=== PATIENT | male | born 1970 | race Caucasian/White ===

== ENCOUNTER 2017-08-24 12:33 | Inpatient (IN) | payer MEDICAID, OTHER ==
[~2017-08-24] VITALS: Ht 170.2 cm; Wt 89.8 kg
[2017-08-24 12:53] LABS: GLUCOSE,POINT OF CARE 154 MG/DL (70-110)
[2017-08-24 14:45] LABS: BASOPHILS % (AUTO) 0.5 % (0.0-2.0); EOSINOPHILS % (AUTO) 0 % (1.0-6.0); HEMATOCRIT 44.9 % (41-53); HEMOGLOBIN 15.6 g/dL (13.5-17.5); LYMPHOCYTES % (AUTO) 6.4 % (22.0-44.0); MEAN CORPUSCULAR HGB CONC 34.7 G/dL (31.0-37.0); MEAN CORPUSCULAR VOLUME 87 fL (80-100); MONOCYTES # (AUTO) 1.1 K/uL (0.1-1.0); MONOCYTES % (AUTO) 6.8 % (2.0-9.0); NEUTROPHILS # (AUTO) 14.1 K/uL (1.8-7.7); NEUTROPHILS % (AUTO) 86.3 % (40.0-70.0); PLATELET COUNT (AUTO) 227 K/uL (150-450); RED BLOOD CELL COUNT(AUTO) 5.19 MIL/uL (4.50-5.90); RED CELL DISTRIBUTION WIDTH 13.4 % (11.5-14.5)
[2017-08-24 14:51] LABS: AMPHET/METH SCREEN,URINE NEGATIVE (NEGATIVE); BARBITURATE SCREEN, URINE NEGATIVE (NEGATIVE); BENZODIAZEPINES SCREEN,URINE POSITIVE (NEGATIVE); CANNABINOID SCREEN,URINE NEGATIVE (NEGATIVE); COCAINE SCREEN,URINE NEGATIVE (NEGATIVE); METHADONE SCREEN, URINE NEGATIVE (NEGATIVE); OPIATE SCREEN,URINE NEGATIVE (NEGATIVE)
[2017-08-24 15:04] LABS: PHENCYCLIDINE SCREEN,URINE NEGATIVE (NEGATIVE)
[2017-08-24 15:06] LABS: ANION GAP 12 mmol/L (8-16); CALCIUM, TOTAL 9.1 mg/dL (8.8-10.5); CARBON DIOXIDE 23 mmol/L (22-29); CHLORIDE 102 mmol/L (98-107); GLOMERULAR FILTR. RATE CALC > 60 mL/min (>60); GLUCOSE,RANDOM 84 mg/dL (70-110); POTASSIUM 3.7 mmol/L (3.5-5.1); SODIUM SERUM 137 mmol/L (136-145); UREA NITROGEN, BLOOD 13 mg/dL (7-18)
[2017-08-24 15:13] LABS: ALANINE AMINOTRANSFERASE 26 U/L (12-78); ALBUMIN 4.2 g/dL (3.4-5.0); ALKALINE PHOSPHATASE 98 U/L (46-116); ASPARTATE AMINOTRANSFERASE 31 U/L (15-37); BILIRUBIN,TOTAL 1.1 mg/dL (0.1-1.0)
[2017-08-24 15:19] LABS: ACETAMINOPHEN < 2 mcg/mL (10-30); SALICYLATE 0.3 mg/dL (2.8-20.0)
[2017-08-24 18:06] VITALS: BP 116/85
[2017-08-24] MEDS ORDERED: PNEUMOCOCCAL VACCINE POLYVALENT 0.5 ML VIAL [PPSV23] IM ONE (18:30)
[2017-08-24] MEDS ORDERED: DiphenhydrAMINE HCL 50 MG/ML VIAL ONE (19:25)
[2017-08-24] MEDS ORDERED: DiphenhydrAMINE HCL 50 MG/ML VIAL IM ONE (19:30)
[2017-08-25 08:28] VITALS: BP 125/73
[2017-08-25 09:17] LABS: CHOL/HDL RATIO 2.4 (4.2-7.3)
[2017-08-25] MEDS ORDERED: MAGNESIUM HYDROXIDE SUSPENSION 30 ML UDCUP PO PRN (10:15)
[2017-08-25] MEDS ORDERED: PETROLATUM,WHITE 71 GM JELLY TP PRN (10:15)
[2017-08-25] MEDS ORDERED: ONDANSETRON HCL 4 MG TABLET PO PRN (10:15)
[2017-08-25] MEDS ORDERED: CloNIDine HCL 0.1 MG TABLET PO PRN (10:15)
[2017-08-25] MEDS ORDERED: LOPERAMIDE HCL 2 MG CAPSULE PO PRN (10:15)
[2017-08-25] MEDS ORDERED: MAG HYDROX/AL HYDROX/SIMETH ES 30 ML SUSPENSION UDCUP PO PRN (10:15)
[2017-08-25] MEDS ORDERED: IBUPROFEN 600 MG TABLET PO PRN (10:15)
[2017-08-25] MEDS ORDERED: BENZOCAINE/MENTHOL LOZENGE MM PRN (10:15)
[2017-08-25] MEDS ORDERED: ACETAMINOPHEN 325 MG TABLET PO PRN (10:15)
[2017-08-25] MEDS ORDERED: BACITRACIN 28.4 GM OINTMENT TP PRN (10:15)
[2017-08-25] MEDS ORDERED: ALBUTEROL SULFATE HFA 90 MCG/PUFF 8 GM INHALER IH PRN (10:15)
[2017-08-25 16:09] VITALS: BP 131/74
[2017-08-25] MEDS: HALOPERIDOL 5 MG TABLET PO PRN (17:33)
[2017-08-25] MEDS ORDERED: DiphenhydrAMINE HCL 50 MG/ML VIAL IM ONE (19:00)
[2017-08-25 19:52] VITALS: BP 129/89
[2017-08-25] MEDS: ZOLPIDEM TARTRATE 10 MG TABLET PO PRN (20:37)
[2017-08-26 05:58] VITALS: BP 122/78
[2017-08-26 08:11] VITALS: BP 120/70
[2017-08-26 08:14] LABS: BASOPHILS % (AUTO) 0.4 % (0.0-2.0); EOSINOPHILS % (AUTO) 0.8 % (1.0-6.0); HEMOGLOBIN 15.1 g/dL (13.5-17.5); LYMPHOCYTES # (AUTO) 1.4 K/uL (1.0-4.8); LYMPHOCYTES % (AUTO) 21.8 % (22.0-44.0); MEAN CORPUSCULAR HGB CONC 34.3 G/dL (31.0-37.0); MEAN CORPUSCULAR VOLUME 87 fL (80-100); MONOCYTES # (AUTO) 0.6 K/uL (0.1-1.0); NEUTROPHILS # (AUTO) 4.4 K/uL (1.8-7.7); PLATELET COUNT (AUTO) 207 K/uL (150-450); RED BLOOD CELL COUNT(AUTO) 5.04 MIL/uL (4.50-5.90); RED CELL DISTRIBUTION WIDTH 13.5 % (11.5-14.5)
[2017-08-26 08:18] LABS: HEMOGLOBIN A1C 5.6 % (4.5-6.2)
[2017-08-26] MEDS: OLANZapine 10 MG RAPDIS TABLET PO SCH ×2 (08:21→16:36)
[2017-08-26] MEDS: DOCUSATE SODIUM 100 MG CAPSULE PO SCH (08:21)
[2017-08-26] MEDS: OMEPRAZOLE 20 MG CAPSULE PO SCH (08:21)
[2017-08-26 08:38] LABS: ALANINE AMINOTRANSFERASE 33 U/L (12-78); ALBUMIN 3.9 g/dL (3.4-5.0); ALKALINE PHOSPHATASE 84 U/L (46-116); ANION GAP 10 mmol/L (8-16); ASPARTATE AMINOTRANSFERASE 62 U/L (15-37); BILIRUBIN,TOTAL 1.2 mg/dL (0.1-1.0); CALCIUM, TOTAL 8.7 mg/dL (8.8-10.5); CARBON DIOXIDE 27 mmol/L (22-29); CHLORIDE 103 mmol/L (98-107); CREATININE 0.89 mg/dL (0.60-1.30); GLOMERULAR FILTR. RATE CALC > 60 mL/min (>60); GLUCOSE,RANDOM 113 mg/dL (70-110); POTASSIUM 3.3 mmol/L (3.5-5.1); SODIUM SERUM 140 mmol/L (136-145); THYROID STIMULATING HORMONE 2.51 uIU/mL (0.36-3.74); TOTAL PROTEIN, SERUM 7.7 g/dL (6.4-8.2); UREA NITROGEN, BLOOD 14 mg/dL (7-18)
[2017-08-26] MEDS ORDERED: POTASSIUM CHLORIDE 20 MEQ ER TABLET PO ONE (09:00)
[2017-08-26 16:30] VITALS: BP 140/87
[2017-08-26] MEDS: HALOPERIDOL 5 MG TABLET PO PRN (16:36)
[2017-08-26] MEDS: ZOLPIDEM TARTRATE 10 MG TABLET PO PRN (21:03)
[2017-08-27] VITALS (8 sets, daily range): BP systolic 116–156; BP diastolic 66–112
[2017-08-27] MEDS: OMEPRAZOLE 20 MG CAPSULE PO SCH (08:09)
[2017-08-27] MEDS: DOCUSATE SODIUM 100 MG CAPSULE PO SCH (08:09)
[2017-08-27] MEDS: OLANZapine 10 MG RAPDIS TABLET PO SCH ×2 (08:09→16:43)
[2017-08-27] MEDS ORDERED: DiphenhydrAMINE HCL 50 MG/ML VIAL IM ONE (12:00)
[2017-08-27] MEDS: BENZTROPINE MESYLATE 1 MG TABLET PO SCH (16:42)
[2017-08-28 00:43] VITALS: BP 144/88
[2017-08-28] MEDS: ZOLPIDEM TARTRATE 10 MG TABLET PO PRN (00:56)
[2017-08-28] MEDS: HALOPERIDOL 5 MG TABLET PO PRN (00:56)
[2017-08-28 08:07] VITALS: BP 130/84
[2017-08-28] MEDS: OLANZapine 10 MG RAPDIS TABLET PO SCH ×2 (08:40→16:17)
[2017-08-28] MEDS: DOCUSATE SODIUM 100 MG CAPSULE PO SCH (08:40)
[2017-08-28] MEDS: BENZTROPINE MESYLATE 1 MG TABLET PO SCH ×2 (08:40→16:17)
[2017-08-28] MEDS: OMEPRAZOLE 20 MG CAPSULE PO SCH (08:40)
[2017-08-28 16:14] VITALS: BP 136/84
[2017-08-29 05:37] VITALS: BP 134/85
[2017-08-29 08:15] VITALS: BP 135/92
[2017-08-29] MEDS: BENZTROPINE MESYLATE 1 MG TABLET PO SCH ×2 (08:24→16:46)
[2017-08-29] MEDS: DOCUSATE SODIUM 100 MG CAPSULE PO SCH (08:24)
[2017-08-29] MEDS: OLANZapine 10 MG RAPDIS TABLET PO SCH ×2 (08:25→16:46)
[2017-08-29] MEDS: OMEPRAZOLE 20 MG CAPSULE PO SCH (08:25)
[2017-08-29] MEDS: ATENOLOL 25 MG TABLET PO SCH (08:25)
[2017-08-29 16:02] VITALS: BP 102/67
[2017-08-29] MEDS: DULoxetine HCL 30 MG CAPSULE PO SCH (16:46)
[2017-08-30 04:26] VITALS: BP 112/75
[2017-08-30 08:10] VITALS: BP 120/73
[2017-08-30] MEDS: OMEPRAZOLE 20 MG CAPSULE PO SCH (08:26)
[2017-08-30] MEDS: OLANZapine 10 MG RAPDIS TABLET PO SCH ×2 (08:26→16:23)
[2017-08-30] MEDS: DOCUSATE SODIUM 100 MG CAPSULE PO SCH (08:26)
[2017-08-30] MEDS: BENZTROPINE MESYLATE 1 MG TABLET PO SCH ×2 (08:26→16:23)
[2017-08-30] MEDS: DULoxetine HCL 30 MG CAPSULE PO SCH ×2 (08:26→16:23)
[2017-08-30] MEDS: ATENOLOL 25 MG TABLET PO SCH (08:26)
[2017-08-30 16:29] VITALS: BP 120/80
[2017-08-31 06:32] VITALS: BP 125/79
[2017-08-31] MEDS ORDERED: BENZ1TAB10 PO (06:47)
[2017-08-31] MEDS ORDERED: OLAN10TA22 PO (06:47)
[2017-08-31] MEDS ORDERED: DULO30CA2 PO (06:47)
[2017-08-31 08:05] VITALS: BP 137/77
[2017-08-31] MEDS: OMEPRAZOLE 20 MG CAPSULE PO SCH (08:10)
[2017-08-31] MEDS: ATENOLOL 25 MG TABLET PO SCH (08:10)
[2017-08-31] MEDS: DULoxetine HCL 30 MG CAPSULE PO SCH (08:10)
[2017-08-31] MEDS: BENZTROPINE MESYLATE 1 MG TABLET PO SCH (08:10)
[2017-08-31] MEDS: OLANZapine 10 MG RAPDIS TABLET PO SCH (08:14)
[2017-08-31] MEDS ORDERED: DSS100 PO (09:13)
[2017-08-31] MEDS: DOCUSATE SODIUM 100 MG CAPSULE PO SCH (09:15)
[2017-08-31] MEDS ORDERED: OMEP20 PO (09:16)
== END 2017-08-31 11:00 | disposition home or self-care (01) | DRG 750 ==
LOC: EMS 12:34 → B3A 15:46
PROVIDERS: ATTEND Psychiatry & Neurology Child & Adolescent Psychiatry
DX: F25.1 Schizoaffective disorder, depressive type (principal); R45.851 Suicidal ideations; Z59.0 Homelessness; D72.829 Elevated white blood cell count, unspecified; F41.9 Anxiety disorder, unspecified; G47.00 Insomnia, unspecified; M79.7 Fibromyalgia; R00.0 Tachycardia, unspecified; Z28.21 Immunization not carried out because of patient refusal; Z56.0 Unemployment, unspecified; Z88.8 Allergy status to other drugs, medicaments and biological substances
CPT/HCPCS: 82306; 82962; 83036; 84132; 84443; 99285; G0480; G0481; J1200; J3230

== ENCOUNTER 2017-08-27 16:32 | Emergency (ER) | payer MEDICAID, OTHER ==
[~2017-08-27] VITALS: Ht 177.8 cm; Wt 77.3 kg
[2017-08-27 19:22] LABS: BASOPHILS % (AUTO) 0.9 % (0.0-2.0); EOSINOPHILS % (AUTO) 0.1 % (1.0-6.0); HEMOGLOBIN 14.7 g/dL (13.5-17.5); LYMPHOCYTES # (AUTO) 1.1 K/uL (1.0-4.8); LYMPHOCYTES % (AUTO) 12.2 % (22.0-44.0); MEAN CORPUSCULAR HGB CONC 34.3 G/dL (31.0-37.0); MEAN CORPUSCULAR VOLUME 88 fL (80-100); MONOCYTES # (AUTO) 0.7 K/uL (0.1-1.0); NEUTROPHILS # (AUTO) 7.3 K/uL (1.8-7.7); NEUTROPHILS % (AUTO) 78.8 % (40.0-70.0); PLATELET COUNT (AUTO) 211 K/uL (150-450); RED BLOOD CELL COUNT(AUTO) 4.91 MIL/uL (4.50-5.90); RED CELL DISTRIBUTION WIDTH 13.5 % (11.5-14.5)
[2017-08-27 19:38] LABS: ANION GAP 10 mmol/L (8-16); CALCIUM, TOTAL 8.9 mg/dL (8.8-10.5); CARBON DIOXIDE 26 mmol/L (22-29); CHLORIDE 103 mmol/L (98-107); CREATININE 0.82 mg/dL (0.60-1.30); GLOMERULAR FILTR. RATE CALC > 60 mL/min (>60); GLUCOSE,RANDOM 118 mg/dL (70-110); POTASSIUM 3.7 mmol/L (3.5-5.1); SODIUM SERUM 139 mmol/L (136-145); UREA NITROGEN, BLOOD 11 mg/dL (7-18)
[2017-08-27 19:43] LABS: ALANINE AMINOTRANSFERASE 34 U/L (12-78); ALBUMIN 3.8 g/dL (3.4-5.0); ALKALINE PHOSPHATASE 84 U/L (46-116); ASPARTATE AMINOTRANSFERASE 54 U/L (15-37); TOTAL PROTEIN, SERUM 7.8 g/dL (6.4-8.2)
[2017-08-27 23:25] VITALS: BP 152/91
== END 2017-08-28 00:16 | disposition home or self-care (01) ==
LOC: EMS 16:33
DX: F20.2 Catatonic schizophrenia (principal); Z88.8 Allergy status to other drugs, medicaments and biological substances
CPT/HCPCS: 36415; 80053; 85025; 99284; G0480

== ENCOUNTER 2017-08-31 16:48 | Emergency (ER) | payer OTHER ==
[~2017-08-31] VITALS: Ht 170.2 cm; Wt 90.9 kg
[~2017-08-31 16:48] MED LIST: BENZ1TAB10 PO; DSS100 PO; DULO30CA2 PO; OLAN10TA22 PO; OMEP20 PO
[2017-08-31 16:59] VITALS: BP 130/80
== END 2017-08-31 18:52 | disposition home or self-care (01) ==
LOC: EMS 16:48
DX: F25.1 Schizoaffective disorder, depressive type (principal); Z59.0 Homelessness; Z88.8 Allergy status to other drugs, medicaments and biological substances; Z79.899 Other long term (current) drug therapy
CPT/HCPCS: 99284

== ENCOUNTER 2017-10-03 17:40 | Inpatient (IN) | payer MEDICAID, OTHER ==
[~2017-10-03] VITALS: Ht 170.2 cm; Wt 93.9 kg
[~2017-10-03 17:40] MED LIST changes: -BENZ1TAB10 PO
[2017-10-03] MEDS ORDERED: AMIT10TA6 PO (18:25)
[2017-10-03 18:49] LABS: BASOPHILS % (AUTO) 0.9 % (0.0-2.0); EOSINOPHILS % (AUTO) 0.1 % (1.0-6.0); HEMATOCRIT 42.5 % (41-53); HEMOGLOBIN 14.7 g/dL (13.5-17.5); LYMPHOCYTES # (AUTO) 1.4 K/uL (1.0-4.8); LYMPHOCYTES % (AUTO) 19.4 % (22.0-44.0); MEAN CORPUSCULAR HEMOGLOBIN 30.2 pg (26.0-34.0); MEAN CORPUSCULAR HGB CONC 34.5 G/dL (31.0-37.0); MEAN CORPUSCULAR VOLUME 88 fL (80-100); MONOCYTES # (AUTO) 0.7 K/uL (0.1-1.0); MONOCYTES % (AUTO) 9.2 % (2.0-9.0); NEUTROPHILS % (AUTO) 70.4 % (40.0-70.0); PLATELET COUNT (AUTO) 229 K/uL (150-450); RED BLOOD CELL COUNT(AUTO) 4.86 MIL/uL (4.50-5.90); RED CELL DISTRIBUTION WIDTH 13.9 % (11.5-14.5)
[2017-10-03 18:58] LABS: ANION GAP 7 mmol/L (8-16); CALCIUM, TOTAL 8.7 mg/dL (8.8-10.5); CARBON DIOXIDE 25 mmol/L (22-29); CHLORIDE 107 mmol/L (98-107); GLOMERULAR FILTR. RATE CALC > 60 mL/min (>60); GLUCOSE,RANDOM 102 mg/dL (70-110); POTASSIUM 3.8 mmol/L (3.5-5.1); SODIUM SERUM 139 mmol/L (136-145); UREA NITROGEN, BLOOD 15 mg/dL (7-18)
[2017-10-03 19:06] LABS: ALANINE AMINOTRANSFERASE 27 U/L (12-78); ALKALINE PHOSPHATASE 93 U/L (46-116); BILIRUBIN,TOTAL 0.7 mg/dL (0.1-1.0); TOTAL PROTEIN, SERUM 8.1 g/dL (6.4-8.2)
[2017-10-03 19:08] LABS: ACETAMINOPHEN < 2 mcg/mL (10-30)
[2017-10-03 20:08] LABS: ASPARTATE AMINOTRANSFERASE 23 U/L (15-37); SALICYLATE 0.4 mg/dL (2.8-20.0)
[2017-10-04 00:38] VITALS: BP 122/87
[2017-10-04 08:00] VITALS: BP 101/64
[2017-10-04 16:00] VITALS: BP 114/65
[2017-10-04] MEDS: HALOPERIDOL 5 MG TABLET PO PRN (16:07)
[2017-10-04] MEDS ORDERED: IBUPROFEN 600 MG TABLET PO PRN (16:45)
[2017-10-04] MEDS ORDERED: MAGNESIUM HYDROXIDE SUSPENSION 30 ML UDCUP PO PRN (16:45)
[2017-10-04] MEDS ORDERED: ONDANSETRON HCL 4 MG TABLET PO PRN (16:45)
[2017-10-04] MEDS ORDERED: MAG HYDROX/AL HYDROX/SIMETH ES 30 ML SUSPENSION UDCUP PO PRN (16:45)
[2017-10-04] MEDS ORDERED: BENZOCAINE/MENTHOL LOZENGE MM PRN (16:45)
[2017-10-04] MEDS ORDERED: ALBUTEROL SULFATE HFA 90 MCG/PUFF 8 GM INHALER IH PRN (16:45)
[2017-10-04] MEDS ORDERED: BACITRACIN 28.4 GM OINTMENT TP PRN (16:45)
[2017-10-04] MEDS ORDERED: PETROLATUM,WHITE 71 GM JELLY TP PRN (16:45)
[2017-10-04] MEDS ORDERED: CloNIDine HCL 0.1 MG TABLET PO PRN (16:45)
[2017-10-04] MEDS ORDERED: ACETAMINOPHEN 325 MG TABLET PO PRN (16:45)
[2017-10-04] MEDS ORDERED: LOPERAMIDE HCL 2 MG CAPSULE PO PRN (16:45)
[2017-10-04] MEDS: OLANZapine 7.5 MG TABLET PO SCH (20:28)
[2017-10-04] MEDS: ZOLPIDEM TARTRATE 10 MG TABLET PO PRN (20:28)
[2017-10-05 06:33] VITALS: BP 110/67
[2017-10-05 08:07] VITALS: BP 108/63
[2017-10-05] MEDS: OMEPRAZOLE 20 MG CAPSULE PO SCH (08:25)
[2017-10-05] MEDS: DOCUSATE SODIUM 100 MG CAPSULE PO SCH (08:25)
[2017-10-05 16:08] VITALS: BP 116/76
[2017-10-05] MEDS: HALOPERIDOL 5 MG TABLET PO PRN (16:24)
[2017-10-05] MEDS: OLANZapine 7.5 MG TABLET PO SCH (20:27)
[2017-10-05] MEDS: ZOLPIDEM TARTRATE 10 MG TABLET PO PRN (21:35)
[2017-10-06 06:32] VITALS: BP 125/78
[2017-10-06 08:14] VITALS: BP 112/74
[2017-10-06] MEDS: DOCUSATE SODIUM 100 MG CAPSULE PO SCH (08:22)
[2017-10-06] MEDS: OMEPRAZOLE 20 MG CAPSULE PO SCH (08:22)
[2017-10-06 16:00] VITALS: BP 110/66
[2017-10-06] MEDS: OLANZapine 7.5 MG TABLET PO SCH (20:19)
[2017-10-06] MEDS: ZOLPIDEM TARTRATE 10 MG TABLET PO PRN (20:43)
[2017-10-07 06:20] VITALS: BP 121/75
[2017-10-07 08:07] VITALS: BP 127/79
[2017-10-07] MEDS: OMEPRAZOLE 20 MG CAPSULE PO SCH (08:20)
[2017-10-07] MEDS: DOCUSATE SODIUM 100 MG CAPSULE PO SCH (08:20)
[2017-10-07 16:00] VITALS: BP 109/75
[2017-10-07] MEDS: OLANZapine 7.5 MG TABLET PO SCH (20:45)
[2017-10-07] MEDS: ZOLPIDEM TARTRATE 10 MG TABLET PO PRN (20:45)
[2017-10-08 06:24] VITALS: BP 125/77
[2017-10-08 08:00] VITALS: BP 117/75
[2017-10-08] MEDS: OMEPRAZOLE 20 MG CAPSULE PO SCH (08:29)
[2017-10-08] MEDS: DOCUSATE SODIUM 100 MG CAPSULE PO SCH (08:29)
[2017-10-08 16:15] VITALS: BP 126/78
[2017-10-08] MEDS: OLANZapine 7.5 MG TABLET PO SCH (20:22)
[2017-10-09 04:15] VITALS: BP 117/78
[2017-10-09 08:10] VITALS: BP 122/81
[2017-10-09] MEDS: DOCUSATE SODIUM 100 MG CAPSULE PO SCH (09:21)
[2017-10-09] MEDS: OMEPRAZOLE 20 MG CAPSULE PO SCH (09:21)
[2017-10-09 16:12] VITALS: BP 120/78
[2017-10-09] MEDS: OLANZapine 7.5 MG TABLET PO SCH (20:08)
[2017-10-10 05:59] VITALS: BP 102/76
[2017-10-10 08:57] VITALS: BP 115/74
[2017-10-10] MEDS: DOCUSATE SODIUM 100 MG CAPSULE PO SCH (09:00)
[2017-10-10] MEDS: OMEPRAZOLE 20 MG CAPSULE PO SCH (09:00)
[2017-10-10 16:43] VITALS: BP 116/70
[2017-10-10] MEDS: OLANZapine 7.5 MG TABLET PO SCH (20:12)
[2017-10-11 01:56] VITALS: BP 127/85
[2017-10-11 08:26] VITALS: BP 109/73
[2017-10-11] MEDS: OMEPRAZOLE 20 MG CAPSULE PO SCH (10:02)
[2017-10-11] MEDS: DOCUSATE SODIUM 100 MG CAPSULE PO SCH (10:02)
[2017-10-11 17:25] VITALS: BP 126/89
[2017-10-11] MEDS: OLANZapine 7.5 MG TABLET PO SCH (20:27)
[2017-10-11] MEDS: ZOLPIDEM TARTRATE 10 MG TABLET PO PRN (20:32)
[2017-10-12 06:59] VITALS: BP 116/82
[2017-10-12 08:08] VITALS: BP 120/74
[2017-10-12] MEDS: DOCUSATE SODIUM 100 MG CAPSULE PO SCH (08:21)
[2017-10-12] MEDS: OMEPRAZOLE 20 MG CAPSULE PO SCH (08:21)
[2017-10-12] MEDS ORDERED: OLAN7.5T2 PO (09:25)
== END 2017-10-12 13:15 | disposition home or self-care (01) | DRG 750 ==
LOC: EMS 18:17 → B2S 21:30 → B3A 22:36 → B2S 10-08 08:33
PROVIDERS: ADMIT Psychiatry & Neurology Psychiatry; ATTEND Psychiatry & Neurology Psychiatry
DX: F25.1 Schizoaffective disorder, depressive type (principal); E83.51 Hypocalcemia; G47.00 Insomnia, unspecified; F41.9 Anxiety disorder, unspecified; K59.00 Constipation, unspecified; T43.212A Poisoning by selective serotonin and norepinephrine reuptake inhibitors, intentional self-harm, initial encounter; Z56.0 Unemployment, unspecified; Z59.0 Homelessness; Z88.8 Allergy status to other drugs, medicaments and biological substances; Z79.899 Other long term (current) drug therapy; Z91.5 Personal history of self-harm; Y92.89 Other specified places as the place of occurrence of the external cause
CPT/HCPCS: 83036; 93005; 99285; G0480; G0481